=== PATIENT | female | born 1995 | race Caucasian/White ===

== ENCOUNTER 2017-02-11 16:42 | Emergency (ER) | payer MEDICAID ==
[~2017-02-11] VITALS: Ht 152.4 cm; Wt 61.8 kg
[2017-02-11] MEDS ORDERED: LAMO150T PO (17:02)
[2017-02-11] MEDS ORDERED: LAMOTRIGINE 100 MG TABLET PO ONE (17:30)
[2017-02-11] MEDS ORDERED: ACETAMINOPHEN 500 MG TABLET ONE (17:34)
[2017-02-11 17:45] LABS: HEMATOCRIT 37.9 % (34.6-47.8); HEMOGLOBIN 12.9 g/dL (11.7-16.4); WHITE BLOOD COUNT 6.5 x10^3/uL (3.4-10)
[2017-02-11 17:52] LABS: BLOOD UREA NITROGEN 7 mg/dL (7-18)
[2017-02-11] MEDS ORDERED: ACETAMINOPHEN 500 MG TABLET PO ONE (18:00)
[2017-02-11 18:10] VITALS: BP 123/62
== END 2017-02-11 19:17 | disposition left against medical advice (07) ==
LOC: ED 18:24
DX: G40.911 Epilepsy, unspecified, intractable, with status epilepticus (principal); F10.10 Alcohol abuse, uncomplicated
CPT/HCPCS: 36415; 80048; 82040; 84703; 85025; 99284